=== PATIENT | female | born 1965 | race Caucasian/White ===

== ENCOUNTER 2018-02-05 10:33 | Observation (INO) | payer BC ==
[~2018-02-05] VITALS: Ht 162.6 cm; Wt 82.3 kg
[2018-02-05] VITALS (8 sets, daily range): BP systolic 109–127; BP diastolic 58–81; PULSE 41–65; RESP 15–23; TEMP 97.4–99.9; O2SAT 95–100
--- NOTE | 2018-02-05 10:53 | PD ---
HPI Chief Complaint: Chest Pain Time Seen by Provider: 10:50 Travel History International Travel<30 days: No Contact w/Intl Traveler<30days: No Traveled to known affect area: No History of Present Illness HPI 52-year-old female patient with history of no significant past medical issues, presents to the ER today for several days history of left-sided chest, scapular , neck discomfort which she currently rates at a 5 out of 10. She has had some shortness of breath as well. She does not note any exacerbating or relieving factors. She has a history of a grandmother and aunt who had massive MIs at the age of 50 something. She has never had her heart checked out before. Modifying Factors: None Associated Signs & Symptoms: Left-sided chest pains, shortness of breath Risk Factors: Family history of early heart disease PFSH Social History Tobacco Use: No Allergies-Medications (Allergen,Severity, Reaction): Coded Allergies: No Known Allergies (Unverified , 02/05/18) Reported Meds & Prescriptions Reported Meds & Active Scripts Active No Active Prescriptions or Reported Medications Review of Systems Except as stated in HPI: all other systems reviewed are Neg Physical Exam Narrative GENERAL: Well-developed middle-aged female patient currently in mild distress. Awake and oriented 3. SKIN: Focused skin assessment warm/dry. HEAD: Atraumatic. Normocephalic. EYES: Pupils equal and round. No scleral icterus. No injection or drainage. ENT: No nasal bleeding or discharge. Mucous membranes pink and moist. NECK: Trachea midline. No JVD. Supple. CARDIOVASCULAR: Regular rate and rhythm. No murmur appreciated. RESPIRATORY: No accessory muscle use. Clear to auscultation. Breath sounds equal bilaterally. GASTROINTESTINAL: Abdomen soft, non-tender, nondistended. Hepatic and splenic margins not palpable. MUSCULOSKELETAL: No obvious deformities. No clubbing. No cyanosis. No edema. NEUROLOGICAL: Awake and alert. No obvious cranial nerve deficits. Motor grossly within normal limits. Normal speech. PSYCHIATRIC: Appropriate mood and affect; insight and judgment normal. Data Data Last Documented VS Vital Signs Date Time Temp Pulse Resp B/P (MAP) Pulse Ox O2 Delivery O2 Flow Rate FiO2 02/05/18 13:30 42 18 112/59 (76) 100 Nasal Cannula 2.00 02/05/18 10:38 97.4 Orders Orders Electrocardiogram (02/05/18 10:50) Ckmb (Isoenzyme) Profile (02/05/18 10:50) Complete Blood Count With Diff (02/05/18 10:50) Comprehensive Metabolic Panel (02/05/18 10:50) D-Dimer (02/05/18 10:50) Magnesium (Mg) (02/05/18 10:50) Prothrombin Time / Inr (Pt) (02/05/18 10:50) Act Partial Throm Time (Ptt) (02/05/18 10:50) Troponin I (02/05/18 10:50) Lipase (02/05/18 10:50) Ecg Monitoring (02/05/18 10:50) Bilateral Bp Monitoring (02/05/18 10:50) Iv Access Insert/Monitor (02/05/18 10:50) Oximetry (02/05/18 10:50) Oxygen Administration (02/05/18 10:50) Sodium Chloride 0.9% Flush (Ns Flush) (02/05/18 11:00) Chest, Pa & Lat (02/05/18 10:50) Admit Order (Ed Use Only) (02/05/18 13:46) Labs Laboratory Tests Test 02/05/18 11:00 White Blood Count 7.5 TH/MM3 Red Blood Count 4.92 MIL/MM3 Hemoglobin 14.3 GM/DL Hematocrit 42.6 % Mean Corpuscular Volume 86.5 FL Mean Corpuscular Hemoglobin 29.1 PG Mean Corpuscular Hemoglobin Concent 33.7 % Red Cell Distribution Width 14.8 % Platelet Count 283 TH/MM3 Mean Platelet Volume 9.0 FL Neutrophils (%) (Auto) 59.6 % Lymphocytes (%) (Auto) 29.0 % Monocytes (%) (Auto) 8.0 % Eosinophils (%) (Auto) 2.8 % Basophils (%) (Auto) 0.6 % Neutrophils # (Auto) 4.5 TH/MM3 Lymphocytes # (Auto) 2.2 TH/MM3 Monocytes # (Auto) 0.6 TH/MM3 Eosinophils # (Auto) 0.2 TH/MM3 Basophils # (Auto) 0.0 TH/MM3 CBC Comment DIFF FINAL Differential Comment Prothrombin Time 10.2 SEC Prothromb Time International Ratio 1.0 RATIO Activated Partial Thromboplast Time 26.3 SEC D-Dimer Quantitative (PE/DVT) 0.31 MG/L FEU Blood Urea Nitrogen 13 MG/DL Creatinine 0.82 MG/DL Random Glucose 80 MG/DL Total Protein 6.8 GM/DL Albumin 3.5 GM/DL Calcium Level 8.7 MG/DL Magnesium Level 2.1 MG/DL Alkaline Phosphatase 77 U/L Aspartate Amino Transf (AST/SGOT) 30 U/L Alanine Aminotransferase (ALT/SGPT) 31 U/L Total Bilirubin 0.3 MG/DL Sodium Level 142 MEQ/L Potassium Level 3.8 MEQ/L Chloride Level 108 MEQ/L Carbon Dioxide Level 28.1 MEQ/L Anion Gap 6 MEQ/L Estimat Glomerular Filtration Rate 73 ML/MIN Total Creatine Kinase 60 U/L Troponin I LESS THAN 0.02 NG/ML Lipase 264 U/L MDM Medical Decision Making Medical Screen Exam Complete: Yes Emergency Medical Condition: Yes Medical Record Reviewed: Yes Interpretation(s) EKG shows sinus bradycardia rate of 43 bpm. No signs of acute ST elevations or depressions. Laboratory Tests Test 02/05/18 11:00 Chloride Level 108 MEQ/L (98-107) Estimat Glomerular Filtration Rate 73 ML/MIN (>89) Troponin I LESS THAN 0.02 NG/ML Last 24 hours Impressions Chest X-Ray 02/05/18 1050 Signed Impressions: Service Date/Time: Monday, February 05, 2018 11:07 - CONCLUSION: No acute cardiopulmonary disease. Shantanu Garcia MD Differential Diagnosis Chest pains: ACS versus dysrhythmias versus anxiety attack versus musculoskeletal Narrative Course EKG shows that her heart rate is on the slow side, in the ER she is ranging around 44-47 bpm. There are no signs of acute ST elevations or depressions. Otherwise blood pressure is fairly normal. At this point, cardiac enzymes and lab work were unremarkable. My plan at this point would be to admit her for further evaluation of symptomatic bradycardia. Case is discussed with Dr. Ortiz for admission. Diagnosis Primary Impression: Chest pain Additional Impression: Bradycardia Admitting Information Admitting Physician Requests: Admit Scripts No Active Prescriptions or Reported Meds Edu Rosario MD Feb 05, 2018 10:53
[2018-02-05] MEDS ORDERED: SODIUM CHLORIDE 0.9% FLUSH 10 ML FLUSH IVF PRN (11:00)
--- NOTE | 2018-02-05 11:32 | RADRPT ---
EXAM DATE/TIME: 02/05/2018 11:07 [facility] COMPARISON: No previous studies available for comparison. INDICATIONS : Chest and back pain. MEDICAL HISTORY : None. SURGICAL HISTORY : None. ENCOUNTER: Initial ACUITY: 2 days PAIN SCORE: 5/10 LOCATION: Bilateral chest FINDINGS: PA and lateral views of the chest demonstrate the lungs to be symmetrically aerated without evidence of mass, infiltrate or effusion. The cardiomediastinal contours are unremarkable. Osseous structure s are intact. CONCLUSION: No acute cardiopulmonary disease. Shantanu Garcia MD on February 05, 2018 at 11:28 Board Certified Radiologist. This report was verified electronically.
[2018-02-05 11:34] LABS: AUTOMATED NEUTROPHIL # 4.5 TH/MM3 (1.8-7.7); BASOPHIL % 0.6 % (0.0-2.0); EOSINOPHIL # 0.2 TH/MM3 (0-0.4); EOSINOPHIL % 2.8 % (0.0-4.0); HEMATOCRIT 42.6 % (35.0-46.0); HEMOGLOBIN 14.3 GM/DL (11.6-15.3); LYMPHOCYTE # 2.2 TH/MM3 (1.0-4.8); MEAN CELL VOLUME 86.5 FL (80.0-100.0); MEAN CORPUSCULAR HEMOGLOBIN 29.1 PG (27.0-34.0); MEAN CORPUSCULAR HGB CONC 33.7 % (32.0-36.0); MONOCYTE # 0.6 TH/MM3 (0-0.9); NEUT % 59.6 % (16.0-70.0); PLATELET COUNT 283 TH/MM3 (150-450); RED BLOOD COUNT 4.92 MIL/MM3 (4.00-5.30); RED CELL DISTRIBUTION WIDTH 14.8 % (11.6-17.2); WHITE BLOOD COUNT 7.5 TH/MM3 (4.0-11.0)
[2018-02-05 11:52] LABS: ALBUMIN 3.5 GM/DL (3.4-5.0); AST (GOT) 30 U/L (15-37); BICARBONATE 28.1 MEQ/L (21.0-32.0); BLOOD UREA NITROGEN 13 MG/DL (7-18); CALCIUM 8.7 MG/DL (8.5-10.1); CHLORIDE 108 MEQ/L (98-107); CREATININE 0.82 MG/DL (0.50-1.00); GLOMERULAR FILTRATION RATE 73 ML/MIN (>89); GLUCOSE,RANDOM 80 MG/DL (74-106); MAGNESIUM 2.1 MG/DL (1.5-2.5); SODIUM (NA) 142 MEQ/L (136-145)
[2018-02-05 11:53] LABS: D-DIMER 0.31 MG/L FEU (0.00-0.50); PROTHROMBIN TIME - PATIENT 10.2 SEC (9.8-11.6)
[2018-02-05 11:56] LABS: ALKALINE PHOSPHATASE 77 U/L (45-117); ALT (GPT) 31 U/L (10-53); TOTAL BILIRUBIN ADULT 0.3 MG/DL (0.2-1.0); TOTAL PROTEIN 6.8 GM/DL (6.4-8.2); TROPONIN I LESS THAN 0.02 NG/ML (0.02-0.05)
[2018-02-05] MEDS ORDERED: AMINOPHYLLINE INJ 250 MG/10 ML VIAL IV ONE (13:52)
[2018-02-05] MEDS ORDERED: ONDANSETRON HCL 4 MG/2 ML VIAL IVP PRN (14:00)
[2018-02-05] MEDS ORDERED: NALOXONE HCL 0.4 MG/ML AMP IV PUSH PRN (14:00)
[2018-02-05] MEDS ORDERED: MAGNESIUM HYDROXIDE SUSP 30 ML CUP PO PRN (14:00)
[2018-02-05] MEDS ORDERED: SODIUM CHLORIDE 0.9% FLUSH 10 ML FLUSH IV FLUSH PRN (14:00)
[2018-02-05] MEDS ORDERED: MORPHINE SULFATE 4 MG/ML INJ IV PUSH PRN (14:00)
--- NOTE | 2018-02-05 15:48 | PD.CONS ---
HPI Consult Requested By Primary Care Physician Unknown History of Present Illness 52-year-old female with no significant past medical history who presented for chest pain shortness of breath. The patient states for the past few days she has been having episodes of chest pain. She states that she has been having chest pain constantly since last night. She states she was too short of breath or today so she came to the ED for evaluation. She continues to have chest pain at this time. Her EKG did show possible anterior lateral and inferior Q waves consistent with age-indeterminate MS, but no acute ST changes or troponin elevation even after 12+ hours of chest pain. She does report that her father recently from an MS and had his first heart attack in his 30s or 40s , as well as aortic stenosis. Her heart rate is also noted to be in the 40s, down to 38. She felt a little lightheaded and dizzy today with a low heart rate. She states that she has had history of heart rate persistently in the 50s and even down to the 40s when she sleeps, in the past. Review of Systems Negative except as stated in HPI Past Family Social History Allergies: Coded Allergies: No Known Allergies (Unverified , 02/05/18) Past Medical History None Reported Medications Reported Meds & Active Scripts Active No Active Prescriptions or Reported Medications Active Ordered Medications Current Medications Medications (Trade) Dose Ordered Sig/Ivy Route Start Time Stop Time Status Last Admin (NS Flush) 2 ml UNSCH PRN IV FLUSH 02/05/18 14:00 (NS Flush) 2 ml BID IV FLUSH 02/05/18 21:00 (Zofran Inj) 4 mg Q6H PRN IVP 02/05/18 14:00 (Lovenox Inj) 40 mg Q24H SQ 02/05/18 14:00 (Morphine Inj) 2 mg Q3H PRN IV PUSH 02/05/18 14:00 (Morphine Inj) 4 mg Q3H PRN IV PUSH 02/05/18 14:00 (Narcan Inj) 0.4 mg UNSCH PRN IV PUSH 02/05/18 14:00 (Milk Of Magnesia Liq) 30 ml Q12H PRN PO 02/05/18 14:00 Family History Family history of heart disease in her father as above Social History Works as [employer] Physical Exam Vital Signs Vital Signs Date Time Temp Pulse Resp B/P (MAP) Pulse Ox O2 Delivery O2 Flow Rate FiO2 02/05/18 14:53 02/05/18 13:30 42 18 112/59 (76) 100 Nasal Cannula 2.00 02/05/18 12:30 44 18 127/81 (96) 100 Nasal Cannula 2.00 02/05/18 11:30 48 23 122/72 (89) 100 Nasal Cannula 2.00 02/05/18 11:00 46 16 122/72 (89) 100 Nasal Cannula 2.00 02/05/18 10:56 47 15 123/64 (83) 97 Nasal Cannula 2.00 02/05/18 10:56 45 16 123/64 (83) 100 2.00 02/05/18 10:54 97 Room Air 2.00 02/05/18 10:38 97.4 45 20 124/73 (90) Physical Exam GENERAL: Well-developed well-nourished. In no acute distress. NECK: No carotid bruits. No JVD. CARDIOVASCULAR: Bradycardic rate and regular rhythm. No murmur appreciated. RESPIRATORY: No accessory muscle use. Clear to auscultation. Breath sounds equal bilaterally. MUSCULOSKELETAL: No clubbing or cyanosis. No edema. NEUROLOGICAL: Awake and alert. Normal speech. Laboratory Laboratory Tests Test 02/05/18 11:00 White Blood Count 7.5 Red Blood Count 4.92 Hemoglobin 14.3 Hematocrit 42.6 Mean Corpuscular Volume 86.5 Mean Corpuscular Hemoglobin 29.1 Mean Corpuscular Hemoglobin Concent 33.7 Red Cell Distribution Width 14.8 Platelet Count 283 Mean Platelet Volume 9.0 Neutrophils (%) (Auto) 59.6 Lymphocytes (%) (Auto) 29.0 Monocytes (%) (Auto) 8.0 Eosinophils (%) (Auto) 2.8 Basophils (%) (Auto) 0.6 Neutrophils # (Auto) 4.5 Lymphocytes # (Auto) 2.2 Monocytes # (Auto) 0.6 Eosinophils # (Auto) 0.2 Basophils # (Auto) 0.0 CBC Comment DIFF FINAL Differential Comment Prothrombin Time 10.2 Prothromb Time International Ratio 1.0 Activated Partial Thromboplast Time 26.3 D-Dimer Quantitative (PE/DVT) 0.31 Blood Urea Nitrogen 13 Creatinine 0.82 Random Glucose 80 Total Protein 6.8 Albumin 3.5 Calcium Level 8.7 Magnesium Level 2.1 Alkaline Phosphatase 77 Aspartate Amino Transf (AST/SGOT) 30 Alanine Aminotransferase (ALT/SGPT) 31 Total Bilirubin 0.3 Sodium Level 142 Potassium Level 3.8 Chloride Level 108 Carbon Dioxide Level 28.1 Anion Gap 6 Estimat Glomerular Filtration Rate 73 Total Creatine Kinase 60 Troponin I LESS THAN 0.02 Lipase 264 Result Diagram: 02/05/18 1100 02/05/18 1100 Imaging Last Impressions Chest X-Ray 02/05/18 1050 Signed Impressions: Service Date/Time: Monday, February 05, 2018 11:07 - CONCLUSION: No acute cardiopulmonary disease. Shantanu Garcia MD Assessment and Plan Assessment and Plan 52-year-old female with no significant past medical history who presented for chest pain shortness of breath. The patient states for the past few days she has been having episodes of chest pain. She states that she has been having chest pain constantly since last night. She states she was too short of breath or today so she came to the ED for evaluation. She continues to have chest pain at this time. Her EKG did show possible anterior lateral and inferior Q waves consistent with age-indeterminate MS, but no acute ST changes or troponin elevation even after 12+ hours of chest pain. She does report that her father recently from an MS and had his first heart attack in his 30s or 40s , as well as aortic stenosis. Her heart rate is also noted to be in the 40s, down to 38. She felt a little lightheaded and dizzy today with a low heart rate. She states that she has had history of heart rate persistently in the 50s and even down to the 40s when she sleeps, in the past. Atypical chest pain: Proceed with Lexiscan in the a.m. for ischemic evaluation. Bradycardia: Heart rate down to 38, possible symptomatic. Continue telemetry monitoring. We will likely plan for outpatient Holter monitoring unless worsening bradycardia. Discussed Condition With Patient with RN at bedside, Jared Flores Feb 05, 2018 15:48
[2018-02-05] MEDS: ENOXAPARIN SODIUM 40 MG/0.4 ML SYRINGE SQ SCH (16:00)
--- NOTE | 2018-02-05 16:01 | EKG ---
Date Performed: 02/05/2018 Time Performed: 10:53:16 PTAGE: 52 years EKG: SINUS BRADYCARDIA LEFT AXIS DEVIATION POSSIBLE ANTERIOR MYOCARDIAL INFARCTION ABNORMAL ECG NO PREVIOUS TRACING DOCTOR: Adonis Urban Interpretating Date/Time 02/05/2018 16:00:55
--- NOTE | 2018-02-05 19:32 | HHI.HP ---
[facility] Unknown Admission Diagnosis Chest pain/bradycardia Diagnoses: Travel History International Travel<30 Days: No Contact w/Intl Traveler <30 Da: No Traveled to Known Affected Are: No History of Present Illness Mrs. Singh is a 52-year-old female. She is admitted secondary to chest pain and bradycardia. She says she's been having very bradycardia while she sleeps for a long time which she notices her FitBit. She has never had problems with symptoms from this. Her heart rate frequently would drop to the 40s at night. For the past 2 days she's been feeling fatigue. While at work today she started having persisting chest pain. Chest pain is atypical and focused between her shoulder blades and includes her back. It is a dull ache in nature but severe enough that she requests pain medications. Her only activity outside of normal was 5 days ago she helped repair some sprinklers but she doesn't feel that she was doing intense enough activity to trigger any kind of muscle strain. There is a strong positive family history in her family including myocardial infarctions at young ages. Her aunt and grandmother had myocardial infarctions and at age 52. Her father had his first myocardial infarction at age 40. She has concerns that her symptoms are related to underlying cardiac disease. She is not a smoker. She is on no medications for any previous underlying medical conditions. Chest pain has been as low as upper 30s but is not sustained. Symptoms are reported as lightheadedness and fatigue. Review of Systems Constitutional: COMPLAINS OF: Fatigue, DENIES: Fever, Chills Eyes: DENIES: Blurred vision, Diplopia, Eye inflammation, Eye pain Ears, nose, mouth, throat: DENIES: Tinnitus, Hearing loss, Vertigo, Nasal discharge, Oral lesions Respiratory: DENIES: Cough, Wheezing, Shortness of breath Cardiovascular: COMPLAINS OF: Chest pain, Syncope, DENIES: Palpitations Gastrointestinal: DENIES: Abdominal pain, Black stools, Bloody stools Musculoskeletal: DENIES: Joint pain, Muscle aches, Stiffness Integumentary: DENIES: Abnormal pigmentation, Pruritus, Rash, Nail changes Hematologic/lymphatic: DENIES: Bruising, Lymphadenopathy Immunologic/allergic: DENIES: Eczema, Urticaria Neurologic: DENIES: Abnormal gait, Headache, Paresthesias Psychiatric: DENIES: Anxiety, Confusion, Hallucinations Past Family Social History Past Medical History None Past Surgical History Appendectomy Tonsillectomy Reported Medications Reported Meds & Active Scripts Active No Active Prescriptions or Reported Medications None Allergies: Coded Allergies: No Known Allergies (Unverified , 02/05/18) Active Ordered Medications Administered Medications Medications (Trade) Dose Ordered Sig/Ivy Route PRN Reason Start Time Stop Time Status Last Admin Dose Admin Enoxaparin Sodium (Lovenox Inj) 40 mg Q24H SQ 02/05/18 14:00 02/05/18 16:00 Family History Myocardial infarction in on an grandmother age 52 Myocardial infarction in father at age 40, history of aortic stenosis and coronary artery disease, from a myocardial infarction. Social History No smoking Occasional alcohol use No illicit drug abuse Physical Exam Vital Signs Vital Signs Date Time Temp Pulse Resp B/P (MAP) Pulse Ox O2 Delivery O2 Flow Rate FiO2 02/05/18 16:00 62 02/05/18 16:00 97.4 41 18 123/64 (83) 100 02/05/18 14:53 02/05/18 13:30 42 18 112/59 (76) 100 Nasal Cannula 2.00 02/05/18 12:30 44 18 127/81 (96) 100 Nasal Cannula 2.00 02/05/18 11:30 48 23 122/72 (89) 100 Nasal Cannula 2.00 02/05/18 11:00 46 16 122/72 (89) 100 Nasal Cannula 2.00 02/05/18 10:56 47 15 123/64 (83) 97 Nasal Cannula 2.00 02/05/18 10:56 45 16 123/64 (83) 100 2.00 02/05/18 10:54 97 Room Air 2.00 02/05/18 10:38 97.4 45 20 124/73 (90) Physical Exam GENERAL: NAD, A&Ox3 HEAD: Normocephalic. NECK: Supple, trachea midline. No lymphadenopathy. EYES: No scleral icterus. No injection or drainage. CARDIOVASCULAR: Bradycardic rate and rhythm without murmurs, gallops, or rubs. RESPIRATORY: Breath sounds equal bilaterally. No accessory muscle use. GASTROINTESTINAL: Abdomen soft, non-tender, nondistended. MUSCULOSKELETAL: No cyanosis, or edema. SKIN: Warm and dry. NEURO: No focal neurological deficitis. Laboratory Laboratory Tests Test 02/05/18 11:00 White Blood Count 7.5 Red Blood Count 4.92 Hemoglobin 14.3 Hematocrit 42.6 Mean Corpuscular Volume 86.5 Mean Corpuscular Hemoglobin 29.1 Mean Corpuscular Hemoglobin Concent 33.7 Red Cell Distribution Width 14.8 Platelet Count 283 Mean Platelet Volume 9.0 Neutrophils (%) (Auto) 59.6 Lymphocytes (%) (Auto) 29.0 Monocytes (%) (Auto) 8.0 Eosinophils (%) (Auto) 2.8 Basophils (%) (Auto) 0.6 Neutrophils # (Auto) 4.5 Lymphocytes # (Auto) 2.2 Monocytes # (Auto) 0.6 Eosinophils # (Auto) 0.2 Basophils # (Auto) 0.0 CBC Comment DIFF FINAL Differential Comment Prothrombin Time 10.2 Prothromb Time International Ratio 1.0 Activated Partial Thromboplast Time 26.3 D-Dimer Quantitative (PE/DVT) 0.31 Blood Urea Nitrogen 13 Creatinine 0.82 Random Glucose 80 Total Protein 6.8 Albumin 3.5 Calcium Level 8.7 Magnesium Level 2.1 Alkaline Phosphatase 77 Aspartate Amino Transf (AST/SGOT) 30 Alanine Aminotransferase (ALT/SGPT) 31 Total Bilirubin 0.3 Sodium Level 142 Potassium Level 3.8 Chloride Level 108 Carbon Dioxide Level 28.1 Anion Gap 6 Estimat Glomerular Filtration Rate 73 Total Creatine Kinase 60 Troponin I LESS THAN 0.02 Lipase 264 Result Diagram: 02/05/18 1100 02/05/18 1100 Imaging Last Impressions Chest X-Ray 02/05/18 1050 Signed Impressions: Service Date/Time: Monday, February 05, 2018 11:07 - CONCLUSION: No acute cardiopulmonary disease. MD Nasrin Brown VTE Risk Assessment Capalexeii VTE Risk Assessment: No/Low Risk (score <= 1) Caprini Risk Assessment Model Point Value = 1 Point Value = 2 Point Value = 3 Point Value = 5 Age 41-60 Minor surgery BMI > 25 kg/m2 Swollen legs Varicose veins or History of unexplained or recurrent spontaneous Oral contraceptives or hormone replacement Sepsis (< 1 month) Serious lung disease, including pneumonia (< 1 month) Abnormal pulmonary function Acute myocardial infarction Congestive heart failure (< 1 month) History of inflammatory bowel disease Medical patient at bed rest Age 61-74 Arthroscopic surgery Major open surgery (> 45 min) Laparoscopic surgery (> 45 min) Malignancy Confined to bed (> 72 hours) Immobilizing plaster cast Central venous access Age >= 75 History of VTE Family history of VTE Factor V Leiden Prothrombin [id number] Lupus anticoagulant Anticardiolipin antibodies Elevated serum homocysteine Heparin-induced thrombocytopenia Other congenital or acquired thrombophilia Stroke (< 1 month) Elective arthroplasty Hip, pelvis, or leg fracture Acute spinal cord injury (< 1 month) Prophylaxis Regimen Total Risk Factor Score Risk Level Prophylaxis Regimen 0-1 Low Early ambulation 2 Moderate Order ONE of the following: *Sequential Compression Device (SCD) *Heparin 5000 units SQ BID 3-4 Higher Order ONE of the following medications: *Heparin 5000 units SQ TID *Enoxaparin/Lovenox 40 mg SQ daily (WT < 150 kg, CrCl > 30 mL/min) *Enoxaparin/Lovenox 30 mg SQ daily (WT < 150 kg, CrCl > 10-29 mL/min) *Enoxaparin/Lovenox 30 mg SQ BID (WT < 150 kg, CrCl > 30 mL/min) AND/OR *Sequential Compression Device (SCD) 5 or more Highest Order ONE of the following medications: *Heparin 5000 units SQ TID (Preferred with Epidurals) *Enoxaparin/Lovenox 40 mg SQ daily (WT < 150 kg, CrCl > 30 mL/min) *Enoxaparin/Lovenox 30 mg SQ daily (WT < 150 kg, CrCl > 10-29 mL/min) *Enoxaparin/Lovenox 30 mg SQ BID (WT < 150 kg, CrCl > 30 mL/min) AND *Sequential Compression Device (SCD) Assessment and Plan Problem List: (1) Bradycardia ICD Code: R00.1 - Bradycardia, unspecified Status: Acute (2) Chest pain ICD Code: R07.9 - Chest pain, unspecified Status: Acute Assessment and Plan 52-year-old female admitted secondary to chest pain and bradycardia Chest pain Evaluate for ACS Follow cardiac enzymes Aspirin daily When necessary oxygen When necessary morphine for pain. When necessary nitroglycerin Follow on telemetry Cardiology consult Bradycardia Follow on telemetry Cardiology consulted Avoid beta blockers DVT prophylaxis Mickey Das MD Feb 05, 2018 19:32
[2018-02-05] MEDS ORDERED: NITROGLYCERIN 0.4 MG SL 25 TABS/BTL SL PRN (19:45)
[2018-02-05 20:14] LABS: TROPONIN I LESS THAN 0.02 NG/ML (0.02-0.05)
[2018-02-05] MEDS: SODIUM CHLORIDE 0.9% FLUSH 10 ML FLUSH IV FLUSH SCH (21:29)
[2018-02-05] MEDS: MORPHINE SULFATE 2 MG/ML SYRINGE IV PUSH PRN (21:29)
[2018-02-06] VITALS: BP 97/57; PULSE 45; PULSE 46; RESP 16; TEMP 97.7; O2SAT 96
[2018-02-06] MEDS: MORPHINE SULFATE 2 MG/ML SYRINGE IV PUSH PRN ×3 (01:39→11:50)
[2018-02-06 01:59] LABS: AUTOMATED NEUTROPHIL # 2.7 TH/MM3 (1.8-7.7); BASOPHIL # 0.1 TH/MM3 (0-0.2); BASOPHIL % 0.9 % (0.0-2.0); EOSINOPHIL # 0.3 TH/MM3 (0-0.4); EOSINOPHIL % 4.1 % (0.0-4.0); HEMATOCRIT 37.9 % (35.0-46.0); HEMOGLOBIN 12.8 GM/DL (11.6-15.3); LYMPHOCYTE # 2.8 TH/MM3 (1.0-4.8); MEAN CELL VOLUME 86.1 FL (80.0-100.0); MEAN CORPUSCULAR HEMOGLOBIN 29.1 PG (27.0-34.0); MEAN CORPUSCULAR HGB CONC 33.8 % (32.0-36.0); MEAN PLATELET VOLUME 8.9 FL (7.0-11.0); MONO % 8.4 % (0.0-8.0); MONOCYTE # 0.5 TH/MM3 (0-0.9); NEUT % 42.6 % (16.0-70.0); PLATELET COUNT 246 TH/MM3 (150-450); RED BLOOD COUNT 4.41 MIL/MM3 (4.00-5.30); RED CELL DISTRIBUTION WIDTH 15.2 % (11.6-17.2); WHITE BLOOD COUNT 6.4 TH/MM3 (4.0-11.0)
[2018-02-06 02:19] LABS: ALT (GPT) 28 U/L (10-53); AST (GOT) 25 U/L (15-37); BICARBONATE 27.2 MEQ/L (21.0-32.0); BLOOD UREA NITROGEN 15 MG/DL (7-18); CALCIUM 8.4 MG/DL (8.5-10.1); CHLORIDE 109 MEQ/L (98-107); CREATININE 0.73 MG/DL (0.50-1.00); GLOMERULAR FILTRATION RATE 84 ML/MIN (>89); GLUCOSE,RANDOM 88 MG/DL (74-106); SODIUM (NA) 145 MEQ/L (136-145)
[2018-02-06 02:37] LABS: ALKALINE PHOSPHATASE 71 U/L (45-117); TOTAL BILIRUBIN ADULT 0.1 MG/DL (0.2-1.0); TOTAL PROTEIN 6.2 GM/DL (6.4-8.2); TROPONIN I LESS THAN 0.02 NG/ML (0.02-0.05)
[2018-02-06 04:00] VITALS: BP 109/70; PULSE 42; PULSE 46; RESP 19; TEMP 97.6; O2SAT 97
[2018-02-06 08:00] VITALS: BP 107/74; PULSE 43; PULSE 45; RESP 20; TEMP 97.8; O2SAT 96
[2018-02-06] MEDS: SODIUM CHLORIDE 0.9% FLUSH 10 ML FLUSH IV FLUSH SCH (08:37)
--- NOTE | 2018-02-06 09:45 | PD.CARD.PN ---
Subjective Subjective Remarks Episodes of chest pain are dull and nonexertional. Telemetry with heart rate down to 35 while sleeping, however no definite high degree AV block is seen on review. Going for stress test today. (Jared Gant) Objective Medications Current Medications Medications (Trade) Dose Ordered Sig/Ivy Route Start Time Stop Time Status Last Admin (NS Flush) 2 ml UNSCH PRN IV FLUSH 02/05/18 14:00 02/06/18 01:39 (NS Flush) 2 ml BID IV FLUSH 02/05/18 21:00 02/06/18 08:37 (Zofran Inj) 4 mg Q6H PRN IVP 02/05/18 14:00 (Lovenox Inj) 40 mg Q24H SQ 02/05/18 14:00 02/05/18 16:00 (Morphine Inj) 2 mg Q3H PRN IV PUSH 02/05/18 14:00 02/06/18 08:38 (Morphine Inj) 4 mg Q3H PRN IV PUSH 02/05/18 14:00 (Narcan Inj) 0.4 mg UNSCH PRN IV PUSH 02/05/18 14:00 (Milk Of Magnesia Liq) 30 ml Q12H PRN PO 02/05/18 14:00 (Nitrostat Sl) 0.4 mg Q5M PRN SL 02/05/18 19:45 Vital Signs / I&O Vital Signs Date Time Temp Pulse Resp B/P (MAP) Pulse Ox O2 Delivery O2 Flow Rate FiO2 02/06/18 04:00 42 02/06/18 04:00 97.6 46 19 109/70 (83) 97 02/06/18 00:00 97.7 46 16 97/57 (70) 96 02/06/18 00:00 45 02/05/18 20:00 Room Air 02/05/18 20:00 65 02/05/18 20:00 97.7 57 19 109/58 (75) 95 02/05/18 16:00 62 02/05/18 16:00 97.4 41 18 123/64 (83) 100 02/05/18 14:53 02/05/18 13:30 42 18 112/59 (76) 100 Nasal Cannula 2.00 02/05/18 12:30 44 18 127/81 (96) 100 Nasal Cannula 2.00 02/05/18 11:30 48 23 122/72 (89) 100 Nasal Cannula 2.00 02/05/18 11:00 46 16 122/72 (89) 100 Nasal Cannula 2.00 02/05/18 10:56 47 15 123/64 (83) 97 Nasal Cannula 2.00 02/05/18 10:56 45 16 123/64 (83) 100 2.00 02/05/18 10:54 97 Room Air 2.00 02/05/18 10:38 97.4 45 20 124/73 (90) I/O 02/05/18 02/05/18 02/05/18 02/06/18 02/06/18 02/06/18 07:00 15:00 23:00 07:00 15:00 23:00 Intake Total 0 ml Output Total 0 ml Balance 0 ml Intake Oral 0 ml Output Urine Total 0 ml Physical Exam GENERAL: Well-developed well-nourished. In no acute distress. NECK: No carotid bruits. No JVD. CARDIOVASCULAR: Bradycardic rate and regular rhythm. No murmur appreciated. RESPIRATORY: No accessory muscle use. Clear to auscultation. Breath sounds equal bilaterally. MUSCULOSKELETAL: No clubbing or cyanosis. No edema. NEUROLOGICAL: Awake and alert. Normal speech. Laboratory Laboratory Tests Test 02/05/18 11:00 02/05/18 19:12 02/06/18 01:07 White Blood Count 7.5 TH/MM3 6.4 TH/MM3 Red Blood Count 4.92 MIL/MM3 4.41 MIL/MM3 Hemoglobin 14.3 GM/DL 12.8 GM/DL Hematocrit 42.6 % 37.9 % Mean Corpuscular Volume 86.5 FL 86.1 FL Mean Corpuscular Hemoglobin 29.1 PG 29.1 PG Mean Corpuscular Hemoglobin Concent 33.7 % 33.8 % Red Cell Distribution Width 14.8 % 15.2 % Platelet Count 283 TH/MM3 246 TH/MM3 Mean Platelet Volume 9.0 FL 8.9 FL Neutrophils (%) (Auto) 59.6 % 42.6 % Lymphocytes (%) (Auto) 29.0 % 44.0 % Monocytes (%) (Auto) 8.0 % 8.4 % Eosinophils (%) (Auto) 2.8 % 4.1 % Basophils (%) (Auto) 0.6 % 0.9 % Neutrophils # (Auto) 4.5 TH/MM3 2.7 TH/MM3 Lymphocytes # (Auto) 2.2 TH/MM3 2.8 TH/MM3 Monocytes # (Auto) 0.6 TH/MM3 0.5 TH/MM3 Eosinophils # (Auto) 0.2 TH/MM3 0.3 TH/MM3 Basophils # (Auto) 0.0 TH/MM3 0.1 TH/MM3 CBC Comment DIFF FINAL DIFF FINAL Differential Comment Prothrombin Time 10.2 SEC Prothromb Time International Ratio 1.0 RATIO Activated Partial Thromboplast Time 26.3 SEC D-Dimer Quantitative (PE/DVT) 0.31 MG/L FEU Blood Urea Nitrogen 13 MG/DL 15 MG/DL Creatinine 0.82 MG/DL 0.73 MG/DL Random Glucose 80 MG/DL 88 MG/DL Total Protein 6.8 GM/DL 6.2 GM/DL Albumin 3.5 GM/DL 3.0 GM/DL Calcium Level 8.7 MG/DL 8.4 MG/DL Magnesium Level 2.1 MG/DL Alkaline Phosphatase 77 U/L 71 U/L Aspartate Amino Transf (AST/SGOT) 30 U/L 25 U/L Alanine Aminotransferase (ALT/SGPT) 31 U/L 28 U/L Total Bilirubin 0.3 MG/DL 0.1 MG/DL Sodium Level 142 MEQ/L 145 MEQ/L Potassium Level 3.8 MEQ/L 4.0 MEQ/L Chloride Level 108 MEQ/L 109 MEQ/L Carbon Dioxide Level 28.1 MEQ/L 27.2 MEQ/L Anion Gap 6 MEQ/L 9 MEQ/L Estimat Glomerular Filtration Rate 73 ML/MIN 84 ML/MIN Total Creatine Kinase 60 U/L 50 U/L 45 U/L Troponin I LESS THAN 0.02 NG/ML LESS THAN 0.02 NG/ML LESS THAN 0.02 NG/ML Lipase 264 U/L Imaging Last 24 hours Impressions Chest X-Ray 02/05/18 1050 Signed Impressions: Service Date/Time: Monday, February 05, 2018 11:07 - CONCLUSION: No acute cardiopulmonary disease. Shatnanu Garcia MD (Jared Gant) Assessment and Plan Assessment and Plan 52-year-old female with no significant past medical history who presented for chest pain shortness of breath. The patient states for the past few days she has been having episodes of chest pain. She states that she has been having chest pain constantly since last night. She states she was too short of breath or today so she came to the ED for evaluation. She continues to have chest pain at this time. Her EKG did show possible anterior lateral and inferior Q waves consistent with age-indeterminate [place], but no acute ST changes or troponin elevation even after 12+ hours of chest pain. She does report that her father recently from an [place] and had his first heart attack in his 30s or 40s , as well as aortic stenosis. Her heart rate is also noted to be in the 40s, down to 38. She felt a little lightheaded and dizzy with a low heart rate. She states that she has had history of heart rate persistently in the 50s and even down to the 40s when she sleeps, in the past. Atypical chest pain: Proceed with Lexiscan today for ischemic evaluation. Bradycardia: Heart rate down to 35, questionably symptomatic. Continue telemetry monitoring. Echocardiogram ordered. Outpatient follow-up for Holter monitor and possible EP referral. If Lexiscan looks okay today, discharge planning. Discussed Condition With Patient seen with Dr. Santo (Jared Gant) Assessment and Plan suspect increased vagal tone need to correlate symptoms with bradycardia given age, would not want to pursue PPM unless absolutely necessary. check orthostatics atypical CP - leslie if leslie negative, outpatient holter and FU with EP (Brian Santo MD) Jared Gant Feb 06, 2018 09:45 Brian Santo MD Feb 06, 2018 10:03
[2018-02-06 12:00] VITALS: BP 107/72; PULSE 41; PULSE 44; RESP 20; TEMP 97.9; O2SAT 98
[2018-02-06] MEDS ORDERED: REGADENOSON INJ 0.4 MG/5 ML SYR ONE (14:13)
[2018-02-06] MEDS: ENOXAPARIN SODIUM 40 MG/0.4 ML SYRINGE SQ SCH (14:23)
--- NOTE | 2018-02-06 17:14 | RADRPT ---
EXAM DATE/TIME: 02/06/2018 14:04 [facility] COMPARISON: No previous studies available for comparison. INDICATIONS : Chest pain and dyspnea. Angina. DOSE: 25.5 mCi Tc99m Myoview at stress. 8.7 mCi Tc99m Myoview at rest. 0.4 mg Lexiscan STRESS SYMPTOMS: Shortness of breath, chest pain, neck pain. EJECTION FRACTION: 66% MEDICAL HISTORY : None SURGICAL HISTORY : Tonsillectomy. Appendectomy. section. ENCOUNTER: Initial ACUITY: 1 day PAIN SCALE: 4/10 LOCATION: Midsternal chest TECHNIQUE: The patient underwent pharmacologic stress with infusion of prescribed dose. Continuous ECG tracing was monitored during stress. Gated SPECT imaging was performed after stress and conventional SPECT i maging was performed at rest. The examination was performed on a SPECT/CT scanner, both attenuation and non-corrected datasets were reviewed. FINDINGS: DISTRIBUTION: The maximum perfused segment at stress is in the anterolateral wall. PERFUSION STUDY: The pattern of perfusion at stress is within normal limits. GATED STUDY: There is intact wall motion and thickening without hypokinetic or dyskinetic segments. CONCLUSION: 1. No reversible perfusion defect to indicate stress-induced myocardial ischemia identified. RISK CATEGORY: Low (<1% Annual Mortality Rate) Mickey Serna MD on February 06, 2018 at 17:11 Board Certified Radiologist. This report was verified electronically.
--- NOTE | 2018-02-06 17:27 | EKG ---
Date Performed: 02/05/2018 Time Performed: 17:15:57 PTAGE: 52 years EKG: SINUS BRADYCARDIA WITH 2:1 AV BLOCK MARKED LEFT AXIS DEVIATION POOR INITIAL ANTERIOR FORCES , CANNOT EXCLUDE ANTEROSEPTAL GA OF UNDETERMINED AGE Compared to previous tracing, previous tracing a ppears to be sinus bradycardia with 2:1 AV block with an overall ventricular rate of 40. Clinical cor relation is recommended ABNORMAL ECG PREVIOUS TRACING : 02/05/2018 10.53 DOCTOR: David Soria Interpretating Date/Time 02/06/2018 17:26:03
--- NOTE | 2018-02-06 17:29 | EKG ---
Date Performed: 02/05/2018 Time Performed: 22:05:36 PTAGE: 52 years EKG: Sinus rhythm WITH A RATE OF APPROXIMATELY 87 WITH 2:1 AV BLOCK LEFT AXIS DEVIATION POOR INITIAL ANTERIOR FORCES, CANNOT EXCLUDE ANTEROSEPTAL NE OF UNDETERMINED AGE OR NONSPECIFIC T WAVE CHANGE Since the previous tr acing, no significant change noted ABNORMAL ECG PREVIOUS TRACING : 02/05/2018 17.15 DOCTOR: David Soria Interpretating Date/Time 02/06/2018 17:27:49
--- NOTE | 2018-02-06 17:51 | HHI.DS ---
Discharge Summary Admission Date Feb 05, 2018 at 13:51 Discharge Date: Feb 06, 2018 Admitting Diagnosis Chest pain/bradycardia (1) Bradycardia ICD Code: R00.1 - Bradycardia, unspecified Diagnosis: Principal Status: Acute (2) Chest pain ICD Code: R07.9 - Chest pain, unspecified Diagnosis: Principal Status: Acute Procedures Cardiac Stress Testing Brief History - From Admission Mrs. Singh is a 52-year-old female. She is admitted secondary to chest pain and bradycardia. She says she's been having very bradycardia while she sleeps for a long time which she notices her FitBit. She has never had problems with symptoms from this. Her heart rate frequently would drop to the 40s at night. For the past 2 days she's been feeling fatigue. While at work today she started having persisting chest pain. Chest pain is atypical and focused between her shoulder blades and includes her back. It is a dull ache in nature but severe enough that she requests pain medications. Her only activity outside of normal was 5 days ago she helped repair some sprinklers but she doesn't feel that she was doing intense enough activity to trigger any kind of muscle strain. There is a strong positive family history in her family including myocardial infarctions at young ages. Her aunt and grandmother had myocardial infarctions and at age 52. Her father had his first myocardial infarction at age 40. She has concerns that her symptoms are related to underlying cardiac disease. She is not a smoker. She is on no medications for any previous underlying medical conditions. Chest pain has been as low as upper 30s but is not sustained. Symptoms are reported as lightheadedness and fatigue. CBC/BMP: 02/06/18 0107 02/06/18 0107 Significant Findings Laboratory Tests Test 02/05/18 11:00 02/05/18 19:12 02/06/18 01:07 Chloride Level 108 MEQ/L (98-107) 109 MEQ/L (98-107) Estimat Glomerular Filtration Rate 73 ML/MIN (>89) 84 ML/MIN (>89) Troponin I LESS THAN 0.02 NG/ML LESS THAN 0.02 NG/ML LESS THAN 0.02 NG/ML Monocytes (%) (Auto) 8.4 % (0.0-8.0) Eosinophils (%) (Auto) 4.1 % (0.0-4.0) Total Protein 6.2 GM/DL (6.4-8.2) Albumin 3.0 GM/DL (3.4-5.0) Calcium Level 8.4 MG/DL (8.5-10.1) Total Bilirubin 0.1 MG/DL (0.2-1.0) Hospital Course Mrs. Singh is a 52 year old female. She is here after having fatigue , chest pain, and discovering that her heart rate was low. ACS work up was within normal limits here. She had a cardiac stress test performed today which shows no reversible perfusion defect and places her in the lowest risk category. Bradycardia has been monitored while in the hospital and has no persistent rates below 40, lowest rates (transient) were in the upper 30's. Heart rates this afternoon are in the 50's and 60's. She is feeling better than time of admit. Plan for holter monitor at discharge. Medically cleared for discharge by cardiology, with negative stress test. Outpatient Holter monitoring and 1 week follow up with cardiology planned. Medically stable and clear for discharge home today. Pt Condition on Discharge: Stable Discharge Disposition: Discharge Home Discharge Time: <= 30 minutes Discharge Instructions DIET: Follow Instructions for: As Tolerated, No Restrictions Activities you can perform: Regular-No Restrictions Follow up Referrals: Cardiology - 2 Weeks PCP Follow-up - 2 Weeks Medication Profile: No Active Prescriptions or Reported Meds Mickey Ortiz MD Feb 06, 2018 17:51
--- NOTE | 2018-02-06 18:19 | ECHRPT ---
Indication: CHEST PAIN CONCLUSIONS The left ventricular systolic function is normal with an estimated ejection fraction in the range of 60-65%. Trace mitral valve regurgitation. There is trace tricuspid valve regurgitation. BP: 109 / 70 HR: 83 Rhythm: Sinus MEASUREMENTS (Male / Female) Normal Values Technical Quality:Good 2D ECHO LV Diastolic Diameter PLAX 4.6 cm 4.2 - 5.9 / 3.9 - 5.3 cm LV Systolic Diameter PLAX 3.2 cm IVS Diastolic Thickness 0.8 cm 0.6 - 1.0 / 0.6 - 0.9 cm LVPW Diastolic Thickness 0.8 cm 0.6 - 1.0 / 0.6 - 0.9 cm LV Relative Wall Thickness 0.3 LVOT Diameter 1.9 cm LA Systolic Diameter LX 3.5 cm 3.0 - 4.0 / 2.7 - 3.8 cm LV Ejection Fraction MOD 4C 68.1 % LV Cardiac Index MOD 4C 2857.1 cm/minm LV Ejection Fraction 4C AL 68.3 % LV Cardiac Index 4C AL 2977.4 cm/minm M-MODE Aortic Root Diameter MM 2.2 cm LA Systolic Diameter MM 4.0 cm LA Ao Ratio MM 1.8 AV Cusp Separation MM 1.9 cm DOPPLER AV Peak Velocity 145.0 cm/s AV Peak Gradient 8.4 mmHg LVOT Peak Velocity 127.0 cm/s LVOT Peak Gradient 6.5 mmHg AV Area Cont Eq pk 2.5 cm MV Area PHT 3.2 cm Mitral E Point Velocity 90.3 cm/s Mitral A Point Velocity 54.8 cm/s Mitral E to A Ratio 1.6 LV E' Lateral Velocity 11.3 cm/s Mitral E to LV E' Lateral Ratio 8.0 LV E' Septal Velocity 7.1 cm/s Mitral E to LV E' Septal Ratio 12.7 TR Peak Velocity 220.0 cm/s TR Peak Gradient 19.4 mmHg Right Atrial Pressure 10.0 mmHg Pulmonary Artery Systolic Pressu 29.4 mmHg Right Ventricular Systolic Press 29.4 mmHg PV Peak Velocity 76.0 cm/s PV Peak Gradient 2.3 mmHg FINDINGS LEFT VENTRICLE The left ventricular systolic function is normal with an estimated ejection fraction in the range of 60-65%. Normal left ventricular size. Wall thickness is normal. No regional wall motion abnormalities are present. RIGHT VENTRICLE Normal right ventricular size and systolic function. LEFT ATRIUM The left atrial size is normal. RIGHT ATRIUM The right atrial size is normal. ATRIAL SEPTUM Normal atrial septal thickness without atrial level shunting by limited color doppler interrogation. AORTA The aortic root and proximal ascending aorta are normal in size on limited imaging. MITRAL VALVE Structurally normal mitral valve No mitral valve stenosis. Trace mitral valve regurgitation. AORTIC VALVE Trileaflet aortic valve. No aortic valve stenosis or regurgitation. TRICUSPID VALVE Structurally normal tricuspid valve. There is trace tricuspid valve regurgitation. The estimated pulmonary arterial pressure is 29.4 mmHg. PULMONARY VALVE No pulmonary valve regurgitation or stenosis. VESSELS The inferior vena cava is normal in size. PERICARDIUM No pericardial effusion. Zafar Red DO (Electronically Signed) Final Date:06 February 2018 18:18
--- NOTE | 2018-02-08 16:11 | HM ---
Date Performed: 02/06/2018 Time Performed: 19:00:00 HOOKUP DATE: 02/06/18 07:00:00 PM Sat ANALYSIS START TIME: 02/06/2018 7:05:00 PM ANALYSIS END TIME: 02/07/2018 7:08:59 PM PATIENT AGE: 52 PATIENT HEIGHT PATIENT WEIGHT DRUG LIST PATIENT DIAGNOSIS: CHEST PAIN YANDY TEST NARRATIVE: The patient's average heart rate was 54 BPM. No episodes of tachycardia wer e noted. Heart rates less than 50 BPM were noted 48% of the time. No pauses exceeding 2.0 second s were noted. No ventricular ectopics were noted. 12 supraventricular ectopics, which represe nted < 1% of the total beat count, were noted. The highest supraventricular ectopic frequency occurr ed from 11:00 AM to 12:00 PM Sun. During this time 2 SVE(s) occurred. No episodes of ST depressi on (defined as -1.0 mm or more) were noted in channel 1. No episodes of ST depression (defined as -1 .0 mm or more) were noted in channel 2. No episodes of ST depression (defined as -1.0 mm or more) we re noted in channel 3. TEST INTERPRETATION: Minimum HR 36. Maximum HR 103. Underlying rhythm is normal sinus. Occasiona l PACs seen. There's no evidence of atrial fibrillation. Conclusions: occasional PACs, no PVCs, no e vidence of atrial fibrillation noted Signed by : Vangie Hall
== END 2018-02-06 19:12 | disposition home or self-care (01) ==
LOC: NEPC 10:33 → NEDA 13:51 → N04A 15:00
PROVIDERS: ADMIT Hospitalist; ATTEND Hospitalist
DX: R07.9 Chest pain, unspecified (principal); R00.1 Bradycardia, unspecified; R94.31 Abnormal electrocardiogram [ECG] [EKG]; Z79.82 Long term (current) use of aspirin; Z82.49 Family history of ischemic heart disease and other diseases of the circulatory system
CPT/HCPCS: 71046; 78452; 80053; 82550; 83690; 83735; 84484; 85025; 85379; 85610; 85730; 93005; 93017; 93225; 93226; 93306; 96372; 96374; 96375; 96376; 99285; A9502; G0378; J0280; J1650; J2270; J2405; J2785